=== PATIENT | male | born 1945 | race Caucasian/White ===

== ENCOUNTER 2025-02-07 10:44 | Emergency (ER) | payer MEDICARE, BC, SELFPAY ==
[2025-02-07 10:46] VITALS: BP 126/80; PULSE 86; RESP 18; TEMP 36.4; O2SAT 95
[2025-02-07 10:57] VITALS: PULSE 84; RESP 18; O2SAT 98
--- NOTE | 2025-02-07 11:40 | PD.EDADULT ---
ED General RME/HPI General Chief complaint: Syncope / Near Syncope Stated complaint: SYNCOPE Time Seen by Provider: 02/07/25 11:40 Arrival date/time: 02/07/25 10:44 79-year-old male presents to the ED with a complaint of near syncope. He [place] up when he suddenly felt very lightheaded with associated nausea. He went over to a bench and sat down and states I think I passed out for a little while . He denies any vertigo types symptoms. He denies any chest pain, shortness of breath, palpitations, vomiting, diarrhea or abdominal pain. He denies any recent illness with fever, chills, cough, upper respiratory complaints. He states he is feeling fine now. Mode of arrival: EMS Limitations: no limitations Related Data Allergies Allergy/AdvReac Type Severity Reaction Status Date / Time codeine Allergy Verified 02/07/25 12:45 Review of Systems Review of Systems Systems Reviewed: All systems reviewed, normal except as documented Narrative Review of Systems: Denies recent illness with Fever, chills, cough, upper respiratory symptoms, vomiting, diarrhea, or abdominal pain. Past Medical History Past Medical History CARDIAC: Positive Hypertension; Negative Congestive Heart Failure RESPIRATORY: Negative Chronic Obstructive Pulmonary Disease (COPD) GENITOURINARY: Negative Renal Disease MUSCULOSKELETAL: Positive Gout ENDOCRINE: Negative Diabetes Mellitus Type 1 or Diabetes Mellitus Type 2 Surgical History SURGICAL: Positive Abdominal Surgery, Gastrostomy, Bowel Surgery and Hx Cholecystectomy Social History SMOKING STATUS: Never smoker ED Exam Narrative Physical exam: Very pleasant 79-year-old male, present with his , alert and oriented, no acute distress. Head is normocephalic, atraumatic. Lungs are clear to auscultation bilaterally. Cardiovascular regular rate and rhythm without murmurs. No evidence of atrial fibrillation on current exam. Abdomen is soft and nontender. Multiple surgical incisions noted to the abdomen without erythema, warmth, or tenderness. He is status post cholecystectomy, appendectomy, and bowel resection secondary to bowel perforation. He moves all extremities well, equal parts facilitator strength, equal pedal push/pull. Equal proximal and distal strength to all 4 extremities. Pupils are PERRL, EOMs intact. Cranial nerves II through XII grossly intact. Mild pronator drift noted on exam. General Limitations: Present no limitations General appearance: Present alert and in no apparent distress Head Head exam: Present atraumatic, normocephalic and normal inspection Eye Eye exam: Present normal appearance, PERRL and EOMI; Absent scleral icterus, conjunctival injection or nystagmus ENT ENT exam: Present normal exam Neck Neck exam: Present normal inspection, full ROM and trachea midline; Absent tenderness Chest Chest inspection: Present normal inspection and symmetric chest wall rise; Absent tenderness Respiratory Respiratory exam: Present normal lung sounds bilaterally; Absent wheezes or prolonged expiratory phase Cardiovascular Cardiovascular exam: Present regular rate, normal rhythm and normal heart sounds; Absent irregular rhythm, systolic murmur, rubs or clicks Abdominal Exam Abdominal exam: Present soft, hypoactive bowel sounds and incision (As noted above.); Absent distention, tenderness, guarding or rebound Rectal Exam Rectal exam: Present deferred Extremities Exam Extremities exam: Present normal inspection and full ROM; Absent tenderness Back Exam Back exam: Present normal inspection and full ROM; Absent tenderness, CVA tenderness (R) or CVA tenderness (L) Neurological Exam Neurological exam: Present alert, oriented X3 and CN II-XII intact; Absent motor sensory deficit Expanded Neurological Exam Patient oriented to: Present person, place and time Speech: Present fluid speech Cranial nerves: Normal: EOM function (II, III, IV, ), facial sensation (V), facial palsy (VII) and tongue deviation (XII) Cerebellar function: Normal: finger to nose and heel to rutherford Cerebellar function: Present Romberg normal Motor strength - LUE: 5/5 Motor strength - RUE: 5/5 Motor strength - LLE: 5/5 Motor strength - RLE: 5/5 Upper motor neuron exam: Normal: alyson neglect, Babinski sign and sensory extinction and Abnormal Left: pronator drift Sensory exam upper extremity: Normal: light touch Sensory exam lower extremity: Normal: light touch Coma scale eye opening: spontaneous Coma scale motor response: obeys commands Coma scale verbal response: oriented Coma scale total: 15 Psychiatric Psychiatric exam: Present normal affect and normal mood Skin Skin exam: Present warm, dry, intact and normal color Course Course Course Narrative: Initial blood pressure 126/80, pulse 86, respirations 18 and nonlabored, temp 97.6, O2 sat 95% on room air. Labs reveal a normal white count of 9.1, normal hemoglobin of 13.7, mildly low hematocrit of 36.7, normal platelets. Coags are normal. Chemistry panel reveals normal sodium, potassium, chloride, CO2 and gap. BUN and creatinine are both mildly elevated at 29/1.6, glucose is mildly elevated at 120, total bili is mildly elevated at 1.5, normal AST/ALT/alk phos. LDH normal at 178, troponin normal at less than 0.020, BNP normal at 37. Urinalysis is negative for infection. Specific gravity is normal at 1.010. EKG reveals: Sinus rhythm at 74. No STEMI. XR chest reveals: No acute process. Head CT reveals: Negative for acute hemorrhage, mass effect or midline shift Patient was given sodium chloride 500 mL IV. Patient was discharged home in stable and improved condition. Quality Measures none Orders Category Date Time Status EKG (ED ONLY) *Do not use* NOW Care 02/07/25 11:43 Completed EKG (ED ONLY) *Do not use* NOW Care 02/07/25 17:04 Completed IV [Insert IV] NOW Care 02/07/25 12:55 Completed Orthostatic Vitals X1 Care 02/07/25 11:[address] head/brain wo con Stat Exams 02/07/25 13:37 Completed EKG (ED Only) Stat Exams 02/07/25 11:43 Draft EKG (ED Only) Stat Exams 02/07/25 17:03 Ordered XR chest 1V portable Stat Exams 02/07/25 11:43 Completed B-Type Natriuretic Peptide Stat Lab 02/07/25 12:43 Completed CBC Stat Lab 02/07/25 12:43 Completed Comprehensive Metabolic Panel Stat Lab 02/07/25 12:43 Completed LDH (Lactate Dehydrogenase) Stat Lab 02/07/25 12:43 Completed Magnesium Stat Lab 02/07/25 12:43 Completed Partial Thromboplastin Time Stat Lab 02/07/25 12:43 Completed Prothrombin Time with INR Stat Lab 02/07/25 12:43 Completed Troponin I Stat Lab 02/07/25 12:43 Completed Troponin I Stat Lab 02/07/25 17:16 Completed Urinalysis Stat Lab 02/07/25 12:35 Completed Urine Culture Stat Lab 02/07/25 12:35 Completed Sodium Chloride 0.9% 500 ml [Ns] 500 ml Med 02/07/25 14:06 Discontinued IV 999 mls/hr Vital Signs Vital signs: Vital Signs Temperature 97.6 F 02/07/25 10:46 Pulse Rate 86 05/10/25 10:46 Respiratory Rate 18 02/07/25 10:46 Blood Pressure 126/80 02/07/25 10:46 Pulse Oximetry (%) 95 02/07/25 10:46 Oxygen Delivery Method Room Air 02/07/25 10:46 Discharge Plan Plan Patient Disposition: HOME (Self Care) Discharge Disposition comment: Stable and improved Prescriptions/Referrals Referrals: Toño Mas [Primary Care Provider] - In 1 week Problem List Clinical Impression: Syncope and collapse Patient/Caregiver Discharge Instructions Education Materials: What Is Syncope?, Causes of Syncope, Dizziness Fainting Poss Causes, ED Fainting, Uncertain Cause Additional Instructions: You will need to follow-up with a recording studio internship for further workup and evaluation including a Holter monitor as well as an echocardiogram and possibly a stress test. Contact your recording [employer] intern[employer] office on Sunday to schedule an appointment. Follow-up with your primary care physician in 24 to 48 hours. Return to the ED for any new or worsening symptoms. Print Language: Wolof Stand Alone Forms: [employer] Award Info., Patient Portal Info Letter PA/JACOB Supervising Physician PA/JACOB Supervising Physician: Dr Salgado MDM Narrative [facility] hospital course (for use when minimal MDM required): 79-year-old male presents to the ED with a complaint of near syncope. He states that [place] and was standing up when he suddenly felt very lightheaded with associated nausea. He went over to a bench and sat down and states I think I passed out for a little while . He denies any vertigo types symptoms. He denies any chest pain, shortness of breath, palpitations, vomiting, diarrhea or abdominal pain. He denies any recent illness with fever, chills, cough, upper respiratory complaints. He states he is feeling fine now. Very pleasant 79-year-old male, present with his , alert and oriented, no acute distress. Head is normocephalic, atraumatic. Lungs are clear to auscultation bilaterally. Cardiovascular regular rate and rhythm without murmurs. No evidence of atrial fibrillation on current exam. Abdomen is soft and nontender. Multiple surgical incisions noted to the abdomen without erythema, warmth, or tenderness. He is status post cholecystectomy, appendectomy, and bowel resection secondary to bowel perforation. He moves all extremities well, equal parts facilitator strength, equal pedal push/pull. Equal proximal and distal strength to all 4 extremities. Pupils are PERRL, EOMs intact. Cranial nerves II through XII grossly intact. Mild pronator drift noted on exam. Initial blood pressure 126/80, pulse 86, respirations 18 and nonlabored, temp 97.6, O2 sat 95% on room air. Labs reveal a normal white count of 9.1, normal hemoglobin of 13.7, mildly low hematocrit of 36.7, normal platelets. Coags are normal. Chemistry panel reveals normal sodium, potassium, chloride, CO2 and gap. BUN and creatinine are both mildly elevated at 29/1.6, glucose is mildly elevated at 120, total bili is mildly elevated at 1.5, normal AST/ALT/alk phos. LDH normal at 178, troponin normal at less than 0.020, BNP normal at 37. Urinalysis is negative for infection. Specific gravity is normal at 1.010. EKG reveals: Sinus rhythm at 74. No STEMI. XR chest reveals: No acute process. Head CT reveals: Negative for acute hemorrhage, mass effect or midline shift Patient was given sodium chloride 500 mL IV. Patient was discharged home in stable and improved condition. Clinical Information Provided by: patient Medical Records reviewed [facility] Meds/Rx considered, not ordered None Labs/Rad/Tests considered, not ordered None Chronic Illness/Social Conditions which may negatively complicate care or outcome(s)-explain: None or not applicable EKG Interpretation EKG #1: EKG Interpretation: As noted above Labs Labs: Interpreted by ms Lab(s) Interpretation(s): As noted above Imaging Imaging Interpretation(s): As noted above Medication Administration(s) Medication Administration History Discontinued Medications Sodium Chloride (Ns) 500 mls @ 999 mls/hr IV .Q31M ONE Stop: 02/07/25 14:36 Last Infusion: 02/07/25 15:50 Dose: Infused Documented By: Admin: 02/07/25 15:10 Dose: 999 mls/hr Documented By: DO Fluid Bolus Diagnosis Differential Diagnosis ED Complaint MDM: ACS,ARRYTHMIA,CVA,DEHYDRATION,HEAT EXHAUSTION/STROKE,VASO-VAGAL SYNCOPE Diagnoses ruled out and/or further discussions: ARRYTHMIA, HEAT STROKE,
--- NOTE | 2025-02-07 11:43 | XR_ITS ---
Examination: AP chest single view TECHNIQUE: AP portable sitting chest single view Examination time: February 07, 2025, 1304 hours INDICATIONS: Syncopal episode, patient passed out this morning. FINDINGS: [id number] elevation right hemidiaphragm with minor atelectasis right base No aspiration pneumonia. Normal heart size IMPRESSION: No aspiration pneumonia
--- NOTE | 2025-02-07 11:43 | EKG_ITS ---
[facility] Test Date: 2025-02-07 Pat Name: ELFEGO MILLER Department: Room: - Gender: Male [employer]er: : 1945 Requested By: Ama Montiel Order Number: [id number] Reading MD: Ama Montiel Measurements Intervals [place] Rate: 74 P: 56 CA: 171 QRS: 34 QRSD: 95 T: 50 QT: 401 QTc: 446 Interpretive Statements SINUS RHYTHM No previous ECG available for comparison /store/S0/[id number].pdf
[2025-02-07 12:20] VITALS: BMI 30.8
--- NOTE | 2025-02-07 12:20 | PC.NURSE ---
PT BROUGHT IN BY EMS WITH C/O SYNCOPAL EPISODE. PT WAS STANDING AT A WHEN HE BECAME LIGHT HEADED AND FELT LIKE HE WAS GOING TO PASS OUT. PT STATES THAT HE SAT DOWN ON THE BENCH AND PASSED OUT. NO INJURY PER PT. PT DENIES PAIN. PT ALERT AND ORIENTED. DENTAL MECHANIC EQUAL AND STRONG. EYES PERRL AT SIZE 3.
[2025-02-07 12:54] VITALS: BP 117/69; BP 127/70; BP 131/75; PULSE 75; PULSE 83; PULSE 84
[2025-02-07 13:04] LABS: Basophils % (Auto) 0 % (0-2.5); Eosinophils % (Auto) 0 % (0-10); Hematocrit 36.7 % (41.0-53.0); Hemoglobin 13.7 g/dL (13.5-16.0); Immature Granulocytes % (Auto) 0 % (0-0); Immature Granulocytes Auto 0.03 Thou/mm3 (0.00-0.00); Lymphocytes # (Auto) 1.1 Thou/mm3 (1.0-4.8); Lymphocytes % (Auto) 12 % (10-50); Mean Corpuscular HGB Conc 37.3 g/dl (31.0-37.0); Mean Corpuscular Hemoglobin 32.7 pg (25.0-35.0); Mean Corpuscular Volume 88 fL (80-100); Monocytes # (Auto) 0.6 Thou/mm3 (0.0-0.8); Monocytes % (Auto) 7 % (0-12); Neutrophils # (Auto) 7.3 Thou/mm3 (1.8-7.7); Neutrophils % (Auto) 80 % (37-80); Nucleated Red Blood Cell % 0 /100 WBC (0); Platelet Count 152 Thou/mm3 (140-440); RDW Standard Deviation 42.3 fL (35.1-43.9); Red Blood Count 4.19 Miln/mm3 (4.50-5.90); White Blood Count 9.1 Thou/mm3 (3.8-10.6)
[2025-02-07 13:09] LABS: Collection Type, Urine Clean Catch; Squamous Epithelial Cell,Urine 0 /hpf (0-5)
[2025-02-07 13:15] LABS: Bilirubin,Urine Negative (Negative); Blood,Urine Negative (Negative); Clarity,Urine Clear (Clear/Hazy); Color,Urine Lt-Yellow (Lt Yel-Yel); Glucose, Urine Negative (Negative); Ketones,Urine Negative (Negative); Leukocyte Esterase,Urine Negative (Negative); Nitrite,Urine Negative (Negative); Protein,Urine Negative (Neg - Trace); RBC,Urine < 1 /hpf (0-3); Urobilinogen,Urine Negative mg/dL (0.0-1.0); WBC,Urine < 1 /hpf (0-5)
[2025-02-07 13:18] LABS: INR 1.1 (0.9-1.3); Partial Thromboplastin Time 23.9 Seconds (22.0-36.0); Prothrombin Time 11.9 Seconds (9.0-12.2)
[2025-02-07 13:22] LABS: B-Type Natriuretic Peptide 37 pg/mL (0-100)
[2025-02-07 13:24] LABS: Alanine Aminotransferase 21 U/L (10-49); Albumin, Serum 3.9 gm/dL (3.4-4.8); Albumin/Globulin Ratio 1.7 (1.2-2.2); Alkaline Phosphatase 104 U/L (46-116); Anion Gap 9 (7-16); Aspartate Amino Transferase 22 U/L (0-34); BUN/Creatinine Ratio 18 Ratio (12-20); Bilirubin,Total 1.5 mg/dL (0.3-1.2); Blood Urea Nitrogen 29 mg/dL (9-23); Calcium 8.8 mg/dL (8.3-10.6); Calcium (Corrected) 8.9 mg/dL (8.5-10.1); Chloride 106 mMol/L (98-107); Creatinine (Component) 1.6 mg/dL (0.6-1.3); Estimated Creatinine Clearance 43.8 mL/min (>60); Globulin 2.3 gm/dL (2.3-3.5); Glucose 120 mg/dL (74-106); LDH (Lactate Dehydrogenase) 178 U/L (120-246); Magnesium 1.9 mg/dL (1.6-2.6); Osmolality,Calculated 280 (275-295); Potassium 4.1 mMol/L (3.4-5.1); Sodium 137 mMol/L (136-145); Total Protein 6.2 gm/dL (5.7-8.2); Troponin I < 0.020 ng/mL (0.0-0.045); eGFR 44 See Note
--- NOTE | 2025-02-07 13:37 | XR_ITS ---
Examination: CT brain head without contrast. 2-D sagittal coronal reconstructions Date and time of exam:February 07, 2025 1445 hours INDICATIONS: Onset syncopal episode today CTDI: vol (mGy):53.8 DLP: (mGycm):1103 Technique: Multiple CT axial sections of the brain have been obtained, 5 mm slice thickness. Contrast has not been administered. 2-D sagittal, coronal reconstructions have been obtained Low dose protocols were performed. One or more of the following dose reduction techniques were used; automated exposure control, adjustment of the mA and/or KV according to patient size, use of iterative reconstruction technique. Findings: No significant ventricular enlargement. Intra-axial or extra-axial hemorrhage density is not seen. No mass effect or midline shift Basal cisterns are not remarkable. Fourth ventricle is midline. Cranial vault intact. Impression: Negative for acute hemorrhage, mass effect or midline shift Advise clinical correlation and follow-up accordingly
[2025-02-07] MEDS: SODIUM CHLORIDE 0.9% 500 ML 500 ML 999 ML IV (15:10)
[2025-02-07 16:34] VITALS: BP 152/86; PULSE 76; RESP 18; TEMP 36.9; O2SAT 98
[2025-02-07 17:52] LABS: Troponin I < 0.020 ng/mL (0.0-0.045)
--- NOTE | 2025-02-07 18:05 | PC.NURSE ---
joy mccall at bedside to go over results with pt
[2025-02-07 18:31] VITALS: BP 160/86; PULSE 86; RESP 18; TEMP 36.9; O2SAT 99
== END 2025-02-07 19:07 | disposition home or self-care (01) ==
PROVIDERS: Physician Assistant; Emergency Provider Family Medicine; PCP Internal Medicine
DX: R55 Syncope and collapse (principal); I10 Essential (primary) hypertension
CPT/HCPCS: 36415; 70450; 71045; 80053; 81001; 83615; 83735; 83880; 84484; 85025; 85610; 85730; 87086; 93005; 96360; 99284; J7040